=== PATIENT | female | born 1955 | race Caucasian/White ===

== ENCOUNTER 2021-06-09 20:41 | Inpatient (IN) | payer MEDICARE ==
[~2021-06-09] VITALS: Ht 160 cm; Wt 58.4 kg
--- NOTE | 2021-06-09 22:09 | NUR ---
2138-PT ARRIVED TO MEDSUR FLOOR WITH EMS, TRANSFERED FROM [facility] IN [place]. PT IS ALERT AND ORIENTED. VS TAKEN AND STABLE, ASSISTED PT TO RESTROOM SBA WITH CANE AND BACK TO BED. ORIENTED PT TO ROOM AND CALL LIGHT. 2154- DR BARTHOLOMEW NOTIFIED PT IS HERE AND SHE IS NOW IN THE ROOM WITH PT.
--- NOTE | 2021-06-09 22:10 | NUR ---
2138 - admitted to room 124 via stretcher acompanied by PFD personnel , transferred from [facility]. Pt stood up and walked to bathroom w/o help. SL LA intact. on room air. voidied, no further c/o rectal bleeding 2199 - Dr Rash in room examining pt
--- NOTE | 2021-06-09 22:52 | NUR ---
COOP WITH ASSESSMENT. ALERT AND ORIENTED, ON ROOM AIR, 2 SL, NO C/O RECTAL BLEEDING, C/O SENSITIVE PAIN NERVES ALL OVER THE BODY, WANTS GABAPENTING, DR MORAN STILL WRITING ORDERS
--- NOTE | 2021-06-09 23:37 | NUR ---
IN TO ASSIST PT WITH BSC, NO FURTHER NEEDS
--- NOTE | 2021-06-10 01:54 | NUR ---
RESTING, NO DISTRESS, IVF INFUSING W/O PROBLEMS. NO N/V
--- NOTE | 2021-06-10 03:23 | NUR ---
IN TO GET VITALS, ICE WATER REFILLED, NO FURTHER NEEDS AT THIS TIME, PT IS RESTING
--- NOTE | 2021-06-10 05:06 | NUR ---
PT WAS A DIRECT TRANSFER FROM [facility]. RECTAL BLEEDING. NO BM'S OR RECTAL BLEEDING NOTED SINCE ADMIT. HAS VOIDED QS. RECEIVED PROTONIX IV AND GABAPENTIN PO SCHEDULED. JUST MEDICATED WITH TYLENOL PER ABD AND BACK PAIN, WARM PAD TO BACK. 1PA. TOLERATES IT WELL. ON ROOM AIR, LUNGS DIM AT BASES, DECLINED A NICOTINE LOZENGER . HAS A SL AND SECONDARY IV INFUSING NS AT 75CC/HR. HAS SLEPT MOST OF THS SHIFT. ALERT AND ORIENTED. TOLERATING LIQUIDS , NO EMESIS.
--- NOTE | 2021-06-10 07:15 | NUR ---
HANDOFF REPORT RECEIVED FROM SUPERVISOR WEBBING RN.
--- NOTE | 2021-06-10 07:37 | NUR ---
DR. MANDEL IN TO SEE PATIENT. PATIENT REPORTS THAT SHE WAS INTENDING TO START OUTPATIENT PHYSICAL THERAPY SOON, R/T EXTREME LOW BACK PAIN. UPON PHYSICAL EXAM, PATIENT'S ANUS IS EXTREMELY INFLAMED AND IRRITATED. PLAN FOR EGD LATER TODAY, COLONOSCOPY DEFERRED UNTIL ANAL IRRITATION IS RESOLVED. PATIENT REPORTS SEEING CARDIOLOGY AT [facility] 6 OR 7 YEARS AGO. PLAN TO ATTEMPT TO GET CARDIOLOGY RECORDS.
[2021-06-10] MEDS ORDERED: GABAPENTIN300 MG PO (07:50)
[2021-06-10] MEDS ORDERED: HYDROCODON-ACE1 EA10 PO (07:50)
[2021-06-10] MEDS ORDERED: SPIRONOLACTONE25 MG PO (07:56)
[2021-06-10] MEDS ORDERED: HYDROXYZINE HCL25 MG PO (07:57)
--- NOTE | 2021-06-10 09:30 | NUR ---
PATIENT SLEEPING SOUNDLY. DOES NOT WAKEN TO VOICE. WILL CHECK BACK LATER.
--- NOTE | 2021-06-10 09:30 | NUR ---
PT RESTING IN BED. PT ON ROOM AIR, LUNG SOUNDS CLEAR, DENIES SOB. BOWEL TONES ACTIVE, DENIES NAUSEA, NPO AT THIS TIME FOR ENDOSCOPY LATER TODAY. CMS INTACT, DENIES NUMBNESS, SCDS IN PLACE. EKG COMPLETED FOR PROCEDURE. IV FLUIDS INFUSING NS AT 75. GABAPENTIN AND SPIRONOLACTONE HELD AT THIS TIME FOR NPO STATUS. PT DENIES OTHER NEEDS AT THIS TIME.
--- NOTE | 2021-06-10 09:58 | NUR ---
Updated patient board, tidied patient room, emptied trash, vitals, and Is and Os charted. Trash emptied. Call light left within reach.
--- NOTE | 2021-06-10 10:48 | CONS ---
[facility] [address], [place] [address] Signed DATE OF CONSULTATION: 06/10/2021 CHIEF COMPLAINT: Melena. HISTORY OF PRESENT ILLNESS: Karena is a 65-year-old chronically debilitated, and disabled patient, who has a previous history of multiple colonoscopies with multiple colonic polyps removed, hemorrhoid and diverticulitis. She developed a bowel blockage she thinks from the diverticulitis and required left lower quadrant colostomy. She had a parastomal hernia repaired with biologic mesh. Later she had a colostomy reversed. She talked about wound infections. She has had several ventral midline incisional hernias repaired with mesh as well. Apparently, all with the same surgeon. She also has chronic anemia with hemoglobin is below 10. She has significant back issues and resides at a senior community home in [place], [place] with a caregiver. Her daughter happens to be a nurse at [employer]. This week she was feeling more weak than usual and apparently had some melena. She alternates between constipation and diarrhea. Following significant constipation, she had some bright red blood per rectum and then diarrhea. She developed significant pain around the anus from all the diarrhea. She was finally taken to [facility] in [facility]. She was evaluated in the emergency room and found to have a hemoglobin of 7.2. She received 1 unit packed red blood cells. She was transferred to our hospital as there were no beds at [facility]. She was admitted overnight and hydrated by our Internal Medicine service. We can see her BUN is normal at 10 with a normal INR. The repeat labs are still pending. She has been hemodynamically stable overnight. PAST MEDICAL HISTORY: GI bleeds, gastritis, hemorrhoids, colonic polyps, diverticulosis, apparent diagnosis of ulcerative colitis in her 20s, but no troubles with that over the years and no medications alternating constipation, diarrhea, rheumatoid arthritis, COPD, anxiety, depression, degenerative disk disease, compression fractures in her spine, osteoporosis, insomnia, weakness, bowel obstruction from apparently diverticulitis, hypertension, peripheral arterial disease, coronary artery disease and possible silent CT. PAST SURGICAL HISTORY: Includes Ella's resection for bowel blockage probably from diverticular disease. She had a colostomy reversed eventually. She had a parastomal hernia repaired with biologic mesh. She has had wound infections. She has had multiple ventral incisional hernias repaired with mesh, all with Dr. Roby Barrientos in [place], [place]. She had a full hysterectomy and had the appendix taken out the same time. She just had cataract surgery one week ago. She had her left hip . She had a colonoscopy in 2010 with multiple colonic polyps removed, diverticulosis and internal hemorrhoids. A colonoscopy apparently in 2011. A colonoscopy in [address] Wick at [place] Electronically Signed By: TRACEE MANDEL MD 06/10/21 1048 PATIENT NAME: KARENA GARDUNO CONSULTATION DATE OF : 51 REPORT #: [id number] PHYSICIAN: TRACEE MANDEL MD PCP: UNASSIGNED DOCTOR REPORT IS CONFIDENTIAL AND NOT TO BE RELEASED WITHOUT AUTHORIZATION [facility] [address], [place] [address] Signed [facility], which is now closed. SOCIAL HISTORY: She continues to smoke and drink wine each week. She is disabled and can ambulate with a cane. She lives at a [facility] with a caregiver in [place], [place]. Kerrie Piper is her physician's assistant director of public works in [place], [place]. She has two daughters, one of which is a nurse at [employer] in [place], [place]. She told me her name is Taylor. FAMILY HISTORY: Brother and sister had liver cancer, mom had breast and ovarian cancers. REVIEW OF SYSTEMS: Karena had 10 systems reviewed and she cannot recall ever having a heart attack. She recalls a cardiac evaluation at [facility] 6 or 7 years ago and thought everything was fine. She describes a nuclear stress test. She has not seen a cnc router operator since. ALLERGIES: Hydrocodone, adhesives, atorvastatin, latex. MEDICATIONS: Combivent, Symbicort, vitamin B12, Colace, gabapentin, hydroxyzine, melatonin, potassium, vitamins including iron and spironolactone. PHYSICAL EXAMINATION: VITAL SIGNS: Her blood pressure is 111/53, heart rate 64, respiratory rate 17, temperature is 98.2. She is 96% on 2 L nasal cannula. She is 5 feet 3 inches at 58 kg. GENERAL: Karena is a 65-year-old female lying supine in her hospital bed. She looks much older than her stated age. She has clearly been a long-time smoker. She is thin, but not quite cachectic. Arms and legs are rather atrophic. LUNGS: Generally clear to auscultation bilaterally with mild rhonchi. HEART: Regular rate and rhythm without murmurs. ABDOMEN: Soft, flat and nontender. I cannot appreciate any obvious hernias. She certainly has scar tissue from all her surgeries. She has a standard Pfannenstiel incision scar along midline scar and then the left lower quadrant transverse scar with our nurse helping, I can see she has significant contact dermatitis around her anus from the recent diarrhea. She has preparation H on that from her home. She declined a digital rectal exam because of the pain. She has a small skin tag in the anterior midline. LABORATORY DATA: White count was 14.4, hemoglobin 7.2, mean cell volume 64, neutrophils 72, platelets 402. Sodium is 133, BUN 10, creatinine 0.8. INR 1, albumin is 4.3. Liver function Electronically Signed By: TRACEE MANDEL MD 06/10/21 1048 PATIENT NAME: KARENA GARDUNO CONSULTATION DATE OF : 51 REPORT #: [id number] PHYSICIAN: TRACEE MANDEL MD PCP: UNASSIGNED DOCTOR REPORT IS CONFIDENTIAL AND NOT TO BE RELEASED WITHOUT AUTHORIZATION [facility] [address] [place] [id number] Signed tests are negative except the alkaline phosphatase a little high from her osteoporosis and her back issues and so forth. RADIOGRAPHIC STUDIES: None. ASSESSMENT/PLAN: Karena is a 65-year-old female with acute on chronic anemia. She describes mostly constipation, but occasional diarrhea. She talked about melena and then some bright red rectal bleeding after the constipation. She has contact dermatitis around her anus diarrhea. Overall, she is hemodynamically stable and feeling better after 1 unit of packed red blood cells. She is asked to delay her bowel prep because of the perianal pain and she would like to do that as an outpatient if possible. However, she would like to proceed with upper endoscopy. To her memory, she cannot recall having an upper endoscopy. However, gastritis is listed in her past medical history. I reviewed with her upper endoscopy along with its risks including, but not limited to gas bloating, crampy abdominal pain, bleeding, perforation requiring surgery, and missed diagnosis. There is no need for any bowel prep. Given her advanced medical issues and frail nature, she will need monitored anesthesia care. She has expressed understanding and would like to proceed in that regard. She would like to consider an outpatient colonoscopy once her perianal skin is healed. She has expressed understanding and would like to proceed as above. Tracee Mandel MD ALB/MODL /[id number] cc: MD Kerrie Singh [facility] Copies: TRACEE MANDEL MD Electronically Signed By: TRACEE MANDEL MD 06/10/21 1048 PATIENT NAME: KARENA GARDUNO CONSULTATION DATE OF : 51 REPORT #: [id number] PHYSICIAN: TRACEE MANDEL MD PCP: UNASSIGNED DOCTOR REPORT IS CONFIDENTIAL AND NOT TO BE RELEASED WITHOUT AUTHORIZATION [address] [place], [place] [address] Signed ~ Electronically Signed By: TRACEE MANDEL MD 06/10/21 1048 PATIENT NAME: SHAANKARENA CARLEE CONSULTATION DATE OF : 51 REPORT #: [id number] PHYSICIAN: TRACEE MANDEL MD PCP: UNASSIGNED DOCTOR REPORT IS CONFIDENTIAL AND NOT TO BE RELEASED WITHOUT AUTHORIZATION
--- NOTE | 2021-06-10 11:00 | NUR ---
PATIENT CONTINUES TO SLEEP SOUNDLY. DID NOT WAKEN TO VOICE OR KNOCK ON ENTRY. SPOKE WITH STAFF NURSE. PATIENT WAS AWAKE EARLIER. AWAKENS HARD. STATES SHE IS GOING TO SURGERY SOON. STATES PATIENT IS STAND BY ASSIST. WILL CHECK BACK AGAIN.
--- NOTE | 2021-06-10 11:11 | NUR ---
PT TO ENDOSCOPY WITH TAYLER HUGHES.
--- NOTE | 2021-06-10 12:03 | NUR ---
06/10/21 1203 Ada Boswell 1155: PT ARRIVES TO PACU WITH ORAL AIRWAY IN PLACE. SHE IS RESPONIVE TO STIMULI.
--- NOTE | 2021-06-10 12:08 | NUR ---
PATIENT GONE TO OR.
--- NOTE | 2021-06-10 12:22 | NUR ---
PT ASLEEP, COULD NOT AWAKEN WITH KNOCK OR MY VOICE. WILL CHECK BACK
--- NOTE | 2021-06-10 12:40 | NUR ---
PT RECEIVED FROM PACU. VSS. NO ACUTE CHANGED. PT ON ROOM AIR, LUNG SOUNDS CLEAR. PT ASSISTED WITH ORDERING LUNCH. PT DENIES PAIN AT THIS TIME. IV FLUIDS RESUMED. PT DENIES OTHER NEEDS AT THIS TIME.
[2021-06-10] MEDS ORDERED: B-12 DOTS500 MCG PO (12:59)
[2021-06-10] MEDS ORDERED: DOCUSATE SODIU250 MG PO (13:01)
[2021-06-10] MEDS ORDERED: K-TAB ER20 MEQ PO (13:03)
[2021-06-10] MEDS ORDERED: PRENATAL + DHA1 EACH PO (13:05)
[2021-06-10] MEDS ORDERED: MELATONIN5 M1 PO (13:09)
--- NOTE | 2021-06-10 13:53 | NUR ---
MED REC COMPLETE
[2021-06-10] MEDS ORDERED: PANTOPRAZOLE SO40 MG PO (14:59)
--- NOTE | 2021-06-10 16:12 | NUR ---
PT GIVEN GABAPENTIN PER EMAR. IV CATH X2 REMOVED FOR DISCHARGE, AWAITING FRIEND FOR DISCHARGE.
--- NOTE | 2021-06-10 16:37 | NUR ---
PATIENT IS DRESSED. IVS OUT. PATIENT IS SITTING UP IN HER CHAIR. SHE IS ALL PACKED UP. ORDERED HER FOOD TO GO. WILL DO VITALS BEFORE SHE LEAVES. PATIENT ALSO BRUSHED HER TEETH.
--- NOTE | 2021-06-10 18:23 | NUR ---
PT AWAITING RIDE. PT REQUESTING TO GO OUTSIDE TO SMOKE, EXPLAINED HOSPITAL POLICY REGARDING SMOKING. PT INSISTING TO GO OUTSIDE, DISCUSSED DISCHARGE WITH PT, PT VERBALIZED UNDERSTANDING THAT DISCHARGE IS COMPLETE ONCE SHE EXITS THE HOSPITAL. PROFESSOR OF THEOLOGY TO TAKE VITALS AND ESCORT PT TO THE LOBBY.
--- NOTE | 2021-06-11 07:14 | OR ---
[facility] [address], [place] [address] Signed DATE OF OPERATION: 06/10/2021 SURGEON: Tracee Mandel MD PREOPERATIVE DIAGNOSES: 1. Idraq-qr-wjxumya anemia with fatigue. 2. History of gastritis. 3. History of colonic polyps. 4. History of open diverticulitis. 5. Ella's procedure with reversal. 6. Melena. 7. Possible ulcerative colitis in her 20s. 8. History of constipation and diarrhea. POSTOPERATIVE DIAGNOSES: 1. Mild diffuse gastritis. 2. Moderate-sized pyloric bulb, duodenal ulcer (nonbleeding). PROCEDURE: Esophagogastroduodenoscopy with CLOtest and biopsies of the antrum. ESTIMATED BLOOD LOSS: None. INDICATIONS: Karena is a 65-year-old female, who is quite debilitated both medically and from a functional standpoint. She lives in an adult facility with the help of a caregiver. She has a long history as listed above. More recently, she had rather significant constipation and when that came through, she had rectal bleeding and followed by diarrhea. The diarrhea is significantly irritated the skin around her anus. She was feeling more fatigued than usual. She is known to have chronic anemia for many years. She was taken over to [facility] in [place], [place]. Her hemoglobin was low and she was given 2 units of packed red blood cells. There were no beds available at [facility]. Consequently, she was transferred to our hospital here at [facility] in [place], [place]. She was admitted by the Internal Medicine Service late last night. She has been hemodynamically stable overnight. No issues with any ongoing bleeding. No specific upper or lower GI complaints. Her main complaint is pain around her anus from all the irritation. BUN is normal at 10. I have been asked to see this morning for consideration of upper endoscopy. She has already been working with her primary care provider as an outpatient. She has a number of Electronically Signed By: TRACEE MANDEL MD 06/11/21 0714 PATIENT NAME: KARENA GARDUNO OPERATIVE REPORT DATE OF : 51 REPORT #: [id number] PHYSICIAN: TRACEE MANDEL MD PCP: UNASSIGNED DOCTOR REPORT IS CONFIDENTIAL AND NOT TO BE RELEASED WITHOUT AUTHORIZATION [facility] [address], [place] [address] Signed different referrals including GI. Her last colonoscopy was in 2012 at the [facility] with Dr. Wick. I had met with Karena this morning to review the above findings. She really wants to delay colonoscopy until the skin around her anus heals up a bit, so she can go through a bowel prep without so much pain. However, she thought the upper endoscopy would be a good idea. To her knowledge, she has never had upper endoscopy. I reviewed with her in detail. She understands the nature of that test. There is risk including, but not limited to gas bloating, crampy abdominal pain, bleeding, perforation requiring surgery, and missed diagnosis. Also, because of her significant medical issues and her frail nature, we asked that an anesthesia provider help us with increased monitoring sedation with propofol. She had expressed understanding and wished to proceed. DESCRIPTION OF PROCEDURE: Karena was taken into our endoscopy suite and placed in the supine semi-recumbent position. She was given IV propofol per our nurse ux research associate. The posterior oropharynx was anesthetized with lidocaine spray. A bite block was utilized for the case. The adult gastroscope was introduced and advanced under direct visualization of camera without difficulty. The duodenum was unremarkable. The pyloric channel showed a moderate-sized, moderately deep nonbleeding ulcer. We took several pictures for photodocumentation, not much in the way of surrounding erythema. The stomach showed very mild inflammatory changes throughout. No ulcerations in the stomach. We took a biopsy of the antrum for CLOtest as well as pathologic review. Upon retroflexion of the scope, it was hard to see if she had any significant hiatal hernia. The scope was then withdrawn up through the area of the GE junction, which was compliant without stricture. Very minimal disruption to her Z-line. No Stark's mucosa. No distal esophagitis. The middle and upper esophagus were unremarkable. After this, the gas was suctioned out, the gastroscope removed. Karena tolerated the procedure quite well. RECOMMENDATIONS: Karena will be returned to her room on the Internal Medicine Service. She will resume her diet. She will stay on a proton pump inhibitor twice a day for two months to heal her ulcer. She needs followup of the biopsies and CLOtest. She should avoid aspirin and NSAIDs for the next two months. She should maintain her outpatient appointments including GI evaluation, particularly for followup colonoscopy. Tracee Mandel MD ALB/MODL Electronically Signed By: TRACEE MANDEL MD 06/11/21 0714 PATIENT NAME: KARENA GARDUNO OPERATIVE REPORT DATE OF : 51 REPORT #: [id number] PHYSICIAN: TRACEE MANDEL MD PCP: UNASSIGNED DOCTOR REPORT IS CONFIDENTIAL AND NOT TO BE RELEASED WITHOUT AUTHORIZATION [facility] [address] [place] [address] Signed /[id number] cc: Tracee Mandel MD Copies: TRACEE MANDEL MD ~ Electronically Signed By: TRACEE MANDEL MD 06/11/21 0714 PATIENT NAME: KARENA GARDUNO OPERATIVE REPORT DATE OF : 51 REPORT #: [id number] PHYSICIAN: TRACEE MANDEL MD PCP: UNASSIGNED DOCTOR REPORT IS CONFIDENTIAL AND NOT TO BE RELEASED WITHOUT AUTHORIZATION
--- NOTE | 2021-06-11 18:55 | EKG ---
[facility] [address] [facility] [place], [place] [address] Signed Normal sinus rhythm Normal ECG No previous ECGs available Confirmed by CHANDNI BARTHOLOMEW MD ([id number]) on 06/11/2021 6:55:06 PM Electronically Signed By: CHANDNI BARTHOLOMEW MD 06/11/21 1855 PATIENT NAME: KARENA GARDUNO Electrocardiogram DATE OF : 51 PHYSICIAN: CHANDNI BARTHOLOMEW MD REPORT #: [id number] REPORT IS CONFIDENTIAL AND NOT TO BE RELEASED WITHOUT AUTHORIZATION
--- NOTE | 2021-06-13 12:41 | PATH ---
[facility] [address] [place], [place] [address] Signed SPECIMEN(S): A ANTRUM/PYLORUS BIOPSY SPECIMEN SOURCE: A. ANTRUM/PYLORUS BIOPSY CLINICAL HISTORY: Preop: GI bleed, gastritis, chronic anemia, diverticulosis, melena, ? ulcerative colitis, constipation/diarrhea, colon polyps, sigmoidectomy. Postop: Ulcer duodenum, gastritis. MICROSCOPIC DESCRIPTION: Histologic sections of all submitted blocks are examined by light microscopy. These findings, together with the gross examination, support the pathologic diagnosis. FINAL PATHOLOGIC DIAGNOSIS: Stomach, antrum/pylorus, biopsy: - Gastric antral mucosa with no significant pathologic changes. - Negative for Helicobacter pylori with HE stains. BRP:em:C2NR GROSS DESCRIPTION: The specimen, labeled "NEAL, antrum biopsy," is received in formalin and consists of one lozano soft tissue fragment that measures 0.3 cm in greatest dimension. The specimen is entirely submitted in cassette (A1). JS (under the direct supervision of a pathologist) The Gross Description was prepared using a voice recognition system. The report was reviewed for accuracy; however, sound-alike word errors, addition and/or deletions may occur. If there is any question about this report, please contact Client Services. PERFORMING LABORATORY: The technical component was performed by [facility], [address] [place] [id number] (Content Management Consultant: Domonique Caballero MD; CLIA# [id number]). The professional interpretation was performed by [facility], [facility], [address] [place] [place] [address]. Diagnostician: Juan Oconnor MD Pathologist Electronically Signed 06/13/2021 PATIENT NAME: KARENA GARDUNO PATHOLOGY DATE OF : 51 REPORT #: [id number] PHYSICIAN: [facility] PCP: UNASSIGNED DOCTOR REPORT IS CONFIDENTIAL AND NOT TO BE RELEASED WITHOUT AUTHORIZATION [address] [address] Signed Copies: ~ PATIENT NAME: KARENA GARDUNO PATHOLOGY DATE OF : 51 REPORT #: [id number] PHYSICIAN: [facility] PCP: UNASSIGNED DOCTOR REPORT IS CONFIDENTIAL AND NOT TO BE RELEASED WITHOUT AUTHORIZATION
== END 2021-06-10 18:29 | disposition home or self-care (01) | DRG 378 ==
LOC: MS 20:41
PROVIDERS: Colon & Rectal Surgery; ADMIT Internal Medicine; ATTEND Internal Medicine
PROC: 0DB68ZX Excision of Stomach, Via Natural or Artificial Opening Endoscopic, Diagnostic (ICD-10-PCS; principal; 2021-06-10 11:00)
DX: K29.71 Gastritis, unspecified, with bleeding (principal); D62 Acute posthemorrhagic anemia; E87.1 Hypo-osmolality and hyponatremia; M06.9 Rheumatoid arthritis, unspecified; J44.9 Chronic obstructive pulmonary disease, unspecified; F41.9 Anxiety disorder, unspecified; F32.9 Major depressive disorder, single episode, unspecified; I10 Essential (primary) hypertension; G47.00 Insomnia, unspecified; I25.10 Atherosclerotic heart disease of native coronary artery without angina pectoris; M54.5 Low back pain; M81.0 Age-related osteoporosis without current pathological fracture; G89.4 Chronic pain syndrome; Z90.710 Acquired absence of both cervix and uterus; Z98.890 Other specified postprocedural states; Z88.6 Allergy status to analgesic agent; Z91.040 Latex allergy status; Z88.8 Allergy status to other drugs, medicaments and biological substances; Z98.49 Cataract extraction status, unspecified eye; Z86.010 Personal history of colon polyps
CPT/HCPCS: 80048; 85007; 85025; 88305; 93005; 93010; C9113; J2704; J7030